=== PATIENT | male | born 1935 | race Caucasian/White ===

== ENCOUNTER → 2017-05-18 11:06 | Outpatient (CLI) | payer MEDICARE, OTHER | END | disposition home or self-care (01) | LOC: D.CT 11:06 | DX: M54.5 Low back pain (principal) ==

== ENCOUNTER 2020-01-04 09:55 | Day surgery (SDC) | payer MEDICARE, OTHER ==
[~2020-01-04] VITALS: Ht 185.4 cm; Wt 90.9 kg
[2020-01-04 10:29] LABS: BASOPHILS 0.5 % (0-2); EOSINOPHILS 7.4 % (0-7); HEMATOCRIT 48.5 % (42.0-54.0); HEMOGLOBIN 16.2 g/dL (13.5-17.5); IMMATURE GRANULOCYTES 0.2 % (0-5); LYMPHOCYTES 20.4 % (15-50); MCH 29.9 pg (26.0-34.0); MCHC 33.4 g/dL (31.0-37.0); MCV 89.5 fL (80.0-100.0); MEAN PLATELET VOLUME 10.2 fL (7.4-10.4); MONOCYTES 7.9 % (2-11); NEUTROPHILS 63.6 % (40-80); PLATELET COUNT 138 10x3/uL (130-400); RBC 5.42 10x6/uL (4.20-6.10); RDW 14.2 % (11.5-14.5); WBC 4.2 10x3/uL (4.8-10.8)
[2020-01-04 10:39] LABS: APTT 29.1 SECONDS (22.8-39.4); INR 1.02 (0.85-1.17); PROTIME 13.3 SECONDS (11.6-15.0)
[2020-01-04 10:45] LABS: ANION GAP 11.1 mmol/L (8-16); CALCIUM 9.8 mg/dL (8.5-10.1); CREATININE - SERUM 1.2 mg/dL (0.6-1.3); POTASSIUM - SERUM 4.1 mmol/L (3.5-5.1)
[2020-01-04] MEDS ORDERED: XALATAN 0.0052.5 ML EACH EYE (11:05)
[2020-01-04] MEDS ORDERED: LIPITOR40 MG PO (11:06)
[2020-01-04] MEDS ORDERED: TIMOL EACH EYE (11:06)
[2020-01-04] MEDS ORDERED: DORZOL EACH EYE (11:06)
[2020-01-04] MEDS ORDERED: COREG 3.1253.125 MG PO (11:06)
[2020-01-04] MEDS ORDERED: PROTONIX40 MG PO (11:07)
[2020-01-04] MEDS ORDERED: GABAPENTIN300 MG PO (11:07)
[2020-01-04] MEDS ORDERED: PROSCAR5 MG PO (11:07)
[2020-01-04] MEDS ORDERED: NAPROSYN500 MG PO (11:08)
[2020-01-04] MEDS ORDERED: ISOSORBIDE MONO30 M1 PO (11:08)
[2020-01-04] MEDS ORDERED: LISINOPRIL2.5 MG PO (11:09)
[2020-01-04] MEDS ORDERED: FUROSEMIDE40 MG PO (11:09)
[2020-01-04] MEDS ORDERED: K-TAB10 MEQ PO (11:10)
[2020-01-04 11:23] VITALS: BP 164/101; Ht 185.4 cm; Wt 90.9 kg
--- NOTE | 2020-01-04 14:00 | NUR ---
DR JAY FINISHED SPEAKING WITH PATIENT ABOUT PROCEDURE. DISCHARGE INSTRUCTIONS REVIEWED WITH PATIENT. DISCHARGED VIA WHEELCHAIR TO PRIVATE VEHICLE WITH SON
--- NOTE | 2020-01-05 17:57 | OP ---
PATIENT NAME: FAMILIA CRENSHAW MEDICAL RECORD: [id number] :37 [facility]: SURGEON: PADDY JAY DO DATE OF OPERATION: 01/04/2020 PROCEDURE: EGD with biopsies. INDICATIONS FOR PROCEDURE: Epigastric pain, wheezing, and heartburn. SCOPE: Olympus video gastroscope. MEDICATIONS: Propofol 220 mg IV per anesthesia. ESTIMATED BLOOD LOSS: Minimal. COMPLICATIONS: None. FINDINGS: Informed consent was given. The patient was made comfortable with the above medication. After reaching an adequate level of sedation by slow IV push, the patient was placed on his left side. The endoscope was advanced under direct visualization through the mouth to the second portion of the duodenum with ease. The entire esophagus appeared normal. At the GE junction, there were minor changes consistent with LA class A reflux-induced esophagitis. The endoscope was advanced beyond the GE junction into the stomach and retroflexed to view the cardia, where a very small sliding hiatal hernia was noted. Throughout the entire stomach, there were very mild changes of erythema and granularity consistent with mild chronic gastritis. Cold forceps, biopsies were taken from the antrum and incisura to submit for histopathology and to rule out the presence of H. pylori. The endoscope was advanced beyond the pylorus into the duodenum, which appeared normal to the second portion. The endoscope was withdrawn from the patient. The patient tolerated the procedure well and there were no complications. IMPRESSION: 1. LA class A reflux-induced esophagitis. 2. Small sliding hiatal hernia. 3. Mild chronic gastritis changes. PLAN AND RECOMMENDATIONS: 1. Discharge home when recovery parameters are met. 2. Follow up biopsy specimen results. 3. GERD diet and reflux precautions. 4. Consider sleeping with the head of the bed elevated for suspected nocturnal reflux. 5. Increase PPI to 40 mg equivalent every morning. 6. Add famotidine 20-40 mg in the evening. 7. Follow up in GI clinic in 4-6 weeks to discuss symptoms. 8. If symptoms are not improved, consider pH study to confirm proximal reflux with an LPRD probe. 9. The patient explains some symptoms consistent with oropharyngeal dysphagia and aspiration during eating. This could possibly be contributing to his symptomatology. Consider Modified Barium swallow with speech therapy present. TRANSINT:[id number] Voice Confirmation ID: [id number] DOCUMENT ID: [id number] OPERATIVE REPORT [id number] FAMILIA CRENSHAW NATHAN A DO at 1757 CC: [id number] DICTATION DATE: 01/04/20 1259 [place] HAND: 01/05/20 0041 [facility] 01/04/20 [place] [id number] [place] [id number]
== END 2020-01-04 14:00 | disposition home or self-care (01) ==
LOC: D.OPS 09:55
PROVIDERS: Anesthesiology; ATTEND Internal Medicine Gastroenterology
DX: R10.13 Epigastric pain (principal); R06.2 Wheezing; K21.0 Gastro-esophageal reflux disease with esophagitis; K44.9 Diaphragmatic hernia without obstruction or gangrene; K29.50 Unspecified chronic gastritis without bleeding; K59.00 Constipation, unspecified; R19.4 Change in bowel habit

== ENCOUNTER → 2020-01-21 12:37 | Outpatient (CLI) | payer MEDICARE, OTHER ==
[2020-01-04 11:23] VITALS: BMI 26.4
[~2020-01-21 12:37] MED LIST: COREG 3.1253.125 MG PO; DORZOL EACH EYE; FUROSEMIDE40 MG PO; GABAPENTIN300 MG PO; ISOSORBIDE MONO30 M1 PO; K-TAB10 MEQ PO; LIPITOR40 MG PO; LISINOPRIL2.5 MG PO; NAPROSYN500 MG PO; PROSCAR5 MG PO; PROTONIX40 MG PO; TIMOL EACH EYE; XALATAN 0.0052.5 ML EACH EYE
== END | disposition home or self-care (01) ==
LOC: D.RAD 12:37
PROVIDERS: ATTEND Family Medicine
DX: Y84.4 Aspiration of fluid as the cause of abnormal reaction of the patient, or of later complication, without mention of misadventure at the time of the procedure (principal)